=== PATIENT | male | born 1960 | race Caucasian/White ===

== ENCOUNTER → 2019-06-01 13:17 | Outpatient (BNVA) | payer MEDICARE, OTHER, SELFPAY | PROVIDERS: PCP Internal Medicine; Referring Provider Internal Medicine; Visit Provider Physical Therapy Assistant | DX: Z12.11 Encounter for screening for malignant neoplasm of colon (principal); Z86.010 Personal history of colon polyps ==

== ENCOUNTER 2019-06-22 07:39 | Day surgery (SDC) | payer OTHER, MEDICARE, SELFPAY ==
[2019-06-22 07:51] VITALS: BP 127/81; PULSE 59; RESP 17; TEMP 36.1; O2SAT 99
[2019-06-22] MEDS: Lactated Ringers 1,000 ML 80 ML IV (08:21)
--- NOTE | 2019-06-22 09:12 | BOWEL_PTH ---
PATIENT: Wil Alves LOC: [facility] U#:[id number] AGE/SX: 58/M ROOM: RE06/22/[address]: Lacy Quiñonez MD : 1960 BED: DIS: 06/22/2019 SPEC #: [id number] RECD: 06/22/19 13:01 STATUS: ALDAIR RE #: [id number] KIESHA: 06/22/19 09:[address]: Lacy Quiñonez DEPT: Surgical Specimen RECD BY: Martita Luo ENTERED: 06/22/19 13:02 SP TYPE: Bowel OTHR DR: Charlene Goss MD Tissues: 1 - BIOPSY BOWEL 2 - BIOPSY BOWEL Procedures: GROSS AND MICRO LEVEL 4 Comments: [id number]
--- NOTE | 2019-06-22 09:28 | W.PM.DSUDISC ---
Discharge Plan Disposition Patient Disposition: HOME Condition: Good Discharge Details Reason For Visit: Colonoscopy Attending Provider: Lacy Quiñonez Primary Care Provider: Charlene Eli Home Meds and New Rx's Prescriptions: Continued tumeric PO RF: 0 jhqmijmtscvi-rqfsfyhs-mnocgf Tablet 1 tab PO DAILY RF: 0 ibuprofen 200 MG tablet 2 tab PO PRN RF: 0 Discontinued polyethylene glycol 3350 17 gram/dose powder 238 g PO ONCE Qty: 238 RF: 0 bisacodyl [Dulcolax (bisacodyl)] 5 mg tablet,delayed release (DR/EC) 5 mg PO ONCE Qty: 4 RF: 0 Discharge Instructions Additional Instructions: Findings: Two small polyps were removed. My office will contact you with biopsy results. Follow up: Plan for a colonoscopy in 5 years. Please call if you develop: fevers >101.5 Nausea or Vomiting Abdominal pain that is not transient DAY SURGERY UNIT POST COLONOSCOPY INSTRUCTIONS 1. Because there will be medication in your system for the next 24 hours, you may feel a little sleepy. Your coordination will be affected. Therefore: a. Do not drive or operate dangerous equipment for 24 hours. b. Do not drink alcohol beverages for 24 hours (not even beer). c. Plan to go home and rest for the day. 2. Generally there are no restrictions on your activity after a day or so has gone by, but you may feel a bit fatigued for a few days. 3 After you arrive home you may have a light meal and return to a normal diet as you can tolerate it without feeling sick to your stomach. 4. After surgery, you may feel pain or discomfort. This should be only transient, but if it persists please contact your doctor. 5. If there are any questions regarding the findings of your procedure, please feel free to contact your doctor. 6. If you are unable to contact your doctor with a problem, contact the hospital at [phone]. 7. Continue all your regular medications unless directed otherwise. I understand the above instructions and have no questions. Signature of Patient or Responsible Adult Escort Date/Time Name of Responsible Adult Escort Signature of Nurse Date/Time Stand Alone Forms: Eden Aggarwal (REALU) Activity:: Activity as Tolerated Diet:: As Tolerated Discharge Orders Discharge Orders: Discharge Order (Routine); Ordered 06/22/19 Ordered By: Lacy Quiñonez DS: Diagnosis Discharge Diagnosis (1) Polyp of colon: Status: Acute (2) S/P colonoscopy with polypectomy:
[2019-06-22 10:00] VITALS: BP 138/76; PULSE 45; RESP 16; TEMP 35.9; O2SAT 100
--- NOTE | 2019-06-22 11:05 | COLE_ITS ---
REPORT OF OPERATIVE PROCEDURE DATE OF PROCEDURE June 22, 2019 PREOPERATIVE DIAGNOSIS History of colon polyps. POSTOPERATIVE DIAGNOSIS Colon polyps. PROCEDURES Colonoscopy with cold forceps polypectomy. SURGEON Lacy Quiñonez M.D. ANESTHESIA Monitored Anesthesia Care. INDICATIONS This is a 58-year-old man whose last colonoscopy in 2009 showed polyps. He presents for routine follo w up. He is asymptomatic and has no family history of colon cancer. PROCEDURE DESCRIPTION The patient was placed in the left Frazier position. Propofol was titrated to sedation. Digital rectal e xamination revealed no abnormities. The scope was advanced to the cecum without difficulty. The ileo cecal valve and appendiceal orifice were clearly identified. The scope was slowly withdrawn with a po ssible polyp identified at the hepatic flexure. This was removed with the cold forceps, it was less t kwon 1 cm and fairly flat. No other abnormalities were seen throughout transverse, descending or sigmo id colon. In the rectum, a less than 1-cm polyp was removed completely with several bites of the cold forceps. Retroflexed view showed no other abnormalities. He tolerated the procedure well and was sta ble to Recovery. It is anticipated he will need a colonoscopy again in five years pending polyp pathology. CC: Leandro Eli.
== END 2019-06-22 10:15 | disposition home or self-care (01) ==
PROVIDERS: PCP Internal Medicine; Visit Provider Surgery
PROC: 0DJD8ZZ Inspection of Lower Intestinal Tract, Via Natural or Artificial Opening Endoscopic (ICD-10-PCS; CPT 45378; principal; 2019-06-22 09:00)
DX: Z12.11 Encounter for screening for malignant neoplasm of colon (principal); Z86.010 Personal history of colon polyps; D12.3 Benign neoplasm of transverse colon; D12.8 Benign neoplasm of rectum
CPT/HCPCS: 45380; 88305

== ENCOUNTER 2020-04-01 06:27 | Outpatient (CLI) | payer OTHER, MEDICARE, SELFPAY ==
[2020-04-01 08:57] LABS: Abs Immature Grans 0.06 k/cumm (0.0-0.09); Absolute Basophil Count 0.06 k/cumm (0.0-0.2); Absolute Eosinophil Count 0.73 k/cumm (0.0-0.7); Absolute Lymphocyte Count 2.91 k/cumm (1.2-3.4); Absolute Monocyte Count 0.77 k/cumm (0.11-0.7); Absolute Neutrophil Count 8.32 k/cumm (1.2-6.7); Basophils % 0.5; Eosinophils % 5.7; HCT 49.2 % (40.0-50.0); HGB 16.5 g/dL (13.5-17.5); Immature Grans % 0.5 %; Lymphocytes % 22.6; Mean Corp. HGB Concentration 33.5 g/dL (32.0-36.0); Mean Corpuscular Hemoglobin 30.9 pg (27.0-33.0); Mean Corpuscular Volume 92.1 fL (80-95); Mean Platelet Volume 10.1 fL (8.0-11.0); Neutrophils % 64.7; Platelet Count 366 x1000/uL (130-400); RBC 5.34 m/cumm (4.50-6.00); RBC Distribution Width 14.3 % (11.8-14.1); White Blood Cell Count 12.86 k/cumm (4.4-10.8)
[2020-04-01 09:36] LABS: ALT 27 U/L (16-63); AST 17 U/L (15-37); Alkaline Phosphatase 69 U/L (46-116); Anion Gap 6.3 mmol/L (3-11); BUN 17 mg/dL (7-18); Bilirubin, Total 0.6 mg/dL (0.2-1.0); CO2 25.7 mmol/L (21.0-32.0); CREATININE 1.16 mg/dL (0.70-1.30); Calcium 9.3 mg/dL (8.5-10.1); Chloride 107 mmol/L (98-107); Glucose 95 mg/dL (74-106); Potassium 4.3 mmol/L (3.5-5.1); Sodium 139 mmol/L (136-145); TSH (W/Ref FT4) 2.17 uIU/mL (0.36-3.74); Total Protein 7.3 g/dL (6.4-8.2)
[2020-04-01 10:08] LABS: ESR 6 mm/hr (1-20)
== END 2020-04-01 06:47 ==
PROVIDERS: PCP Nurse Practitioner; Visit Provider Internal Medicine
DX: Z00.00 Encounter for general adult medical examination without abnormal findings (principal); F32.9 Major depressive disorder, single episode, unspecified; M25.572 Pain in left ankle and joints of left foot
CPT/HCPCS: 36415; 80053; 85652; 84443; 85025

== ENCOUNTER 2020-08-22 07:48 | Outpatient (CLI) | payer OTHER, SELFPAY ==
[2020-08-23 12:44] LABS: COVID-19 RT-PCR Result NEGATIVE (Negative)
== END 2020-08-22 08:08 ==
PROVIDERS: PCP Nurse Practitioner; Visit Provider Surgery
DX: Z01.818 Encounter for other preprocedural examination (principal)
CPT/HCPCS: U0003

== ENCOUNTER 2020-08-26 08:44 | Day surgery (SDC) | payer OTHER, SELFPAY ==
[2020-08-26] VITALS (8 sets, daily range): BP systolic 93–175; BP diastolic 62–86; PULSE 48–60; RESP 16–25; TEMP 36–36.6; O2SAT 93–99
--- NOTE | 2020-08-26 09:41 | W.PM.DSUDISC ---
Discharge Plan Disposition Patient Disposition: HOME Condition: Good Discharge Details Reason For Visit: Left inguinal hernia repair with mesh Attending Provider: Lacy Quiñonez Primary Care Provider: Juliana La Home Meds and New Rx's Prescriptions: New hydrocodone-acetaminophen 5-325 mg Tablet 1 - 2 tab PO Q4H PRN (Reason: Pain) Qty: 15 RF: 0 Continued tumeric 1 cap PO DAILY RF: 0 jgkrkzehgmhk-nlkhohgq-xeygfd Tablet 1 tab PO DAILY RF: 0 ibuprofen 200 MG tablet 2 tab PO PRN RF: 0 Discharge Instructions Additional Instructions: The top bandage can be removed tomorrow. The steri strips will usually stick for about a week. When the edges start to curl up, they can be removed. It is okay to shower tomorrow, the water can run over the steri strips Do not swim or soak in a tub for two weeks Call for any concerns including fever, increased pain, vomiting, incision redness or drainage. Do not lift more than 15 pounds for four weeks. Walking and stairs are fine. Do not drive if on narcotic pain meds or if limited by pain. May use Tylenol alternating with ibuprofen for pain control. Ice is also an option. The maximum dose for Tylenol is 4000 mg/day. May use ibuprofen 800 mg every 8 hours as needed. If concerned about constipation, you may use a stool softener or milk of magnesia. Referrals: Lacy Quiñonez MD [ [facility] STAFF PHYSICIAN] - (Return in 10-14 days for a postop check) Activity:: Do not lift more than 15 pounds Remove Dressings/Wound Care:: 24 hours Shower/Bathe:: 24 hours Diet:: As Tolerated Discharge Orders Discharge Orders: Discharge Order (Routine); Ordered 08/26/20 Ordered By: Lacy Quiñonez DS: Diagnosis Discharge Diagnosis (1) Inguinal hernia, left: Status: Acute
--- NOTE | 2020-08-26 09:55 | W.PM.OP ---
Date of service: 08/26/20 Time of Service: 11:41 Operative Note Operative Note DATE OF PROCEDURE: 08/26/20 PRE-OP DIAGNOSIS: Left inguinal hernia PROCEDURE: Left inguinal hernia repair with mesh SURGEON: Lacy Quiñonez GUMMED TAPE PRESS OPERATOR: Maya Mosqueda ANESTHESIA: GETA, regional and local Indications: This 59 year old man presents with a bothersome left inguinal hernia. Procedure Description: The patient was placed supine on the operating table. After induction of general anesthesia and TAP block placement, his left groin was prepped and draped sterilely. The ASIS and pubic tubercle were identified and a transverse incision marked between the 2 locations. Local anesthetic was infiltrated and the Ioban placed. Incision was made with knife and subcutaneous tissue divided with cautery down to the external oblique fascia. Any bridging veins that were encountered were clamped, divided and ligated with 3-0 Vicryl ties. A small incision was made in the fascia and extended bluntly through the external inguinal ring. The spermatic cord was dissected free at the level of the pubic tubercle and encircled with a Era drain. There was not a direct defect in the floor of the inguinal canal. Dissection within the cord revealed a small cord lipoma. This was dissected free up to the internal ring and reduced. There is also a moderate sized hernia sac that did not have any contents. This was dissected free of the cord structures and reduced. A medium mesh plug was sutured into the internal ring with interrupted 2-0 Prolene sutures. A flat sheet of mesh was sutured to the floor of the inguinal canal in standard Yamel fashion. The cord was inspected and was not compressed by the mesh. There was good hemostasis. The external oblique fascia was closed with a running 3-0 Vicryl stitch and Ray's fascia closed with interrupted 3-0 Vicryl sutures. The skin was then closed with a running 4 Monocryl subcuticular stitch. He tolerated the procedure well and was stable to recovery.
[2020-08-26] MEDS: ceFAZolin 2 GM/50 ML BAG IVPB (09:58)
[2020-08-26] MEDS: Lactated Ringers 1,000 ML 80 ML IV (11:24)
[2020-08-26] MEDS: fentaNYL 100 MCG/2 ML VIAL IVP ×2 (11:57→12:13)
[2020-08-26] MEDS: Acetaminophen 325 MG TAB 650 MG PO (13:31)
== END 2020-08-26 14:27 | disposition home or self-care (01) ==
PROVIDERS: PCP Nurse Practitioner; Visit Provider Surgery
PROC: (CPT 49505; principal; 2020-08-26 11:00)
DX: K40.90 Unilateral inguinal hernia, without obstruction or gangrene, not specified as recurrent (principal); F41.9 Anxiety disorder, unspecified; F17.210 Nicotine dependence, cigarettes, uncomplicated
CPT/HCPCS: 49505; C1781; J0690; J1100; J1885; J2405; J3010

== ENCOUNTER → 2021-03-18 08:45 | Outpatient (BNVA) | payer OTHER, SELFPAY | PROVIDERS: PCP Nurse Practitioner; Referring Provider Nurse Practitioner; Visit Provider Psychiatry & Neurology Neurology | DX: G58.9 Mononeuropathy, unspecified (principal); G56.23 Lesion of ulnar nerve, bilateral upper limbs; G56.03 Carpal tunnel syndrome, bilateral upper limbs; G57.13 Meralgia paresthetica, bilateral lower limbs; F41.8 Other specified anxiety disorders | CPT/HCPCS: 99215 ==

== ENCOUNTER 2023-04-06 07:54 | Outpatient (CLI) | payer MEDICARE, OTHER, SELFPAY ==
[2023-04-06 07:48] LABS: MCH 30.8 pg (27.0-33.0); MCHC 33.3 % (32.0-36.0); MCV 93 fL (80-95); MPV 9.6 fL (8.0-11.0); Platelet Count 310 10^3/uL (130-400); RBC 5.19 10^6/uL (4.36-5.78); RDW 13.7 % (11.8-14.1); RDW-SD 46.5 fL; WBC 12.03 10^3/uL (4.4-10.8)
[2023-04-06 08:41] LABS: ALT 31 U/L (16-63); AST 19 U/L (15-37); Albumin 3.7 g/dL (3.4-5.0); Alkaline Phosphatase 81 U/L (46-116); Anion Gap 11.5 mmol/L (3-11); BUN 16 mg/dL (7-18); Bilirubin, Total 0.6 mg/dL (0.2-1.0); CO2 22.5 mmol/L (21.0-32.0); Calcium 8.7 mg/dL (8.5-10.1); Calculated LDL 109 mg/dL (<100); Chloride 105 mmol/L (98-107); Cholesterol 180 mg/dL (<200); Estimated GFR 84.57 (mL/min/1.73m2); Glucose 96 mg/dL (74-106); HDL Cholesterol 61 mg/dL (40-60); Potassium 4.4 mmol/L (3.5-5.1); Sodium 139 mmol/L (136-145); Total Protein 7.5 g/dL (6.4-8.2); Triglyceride 50 mg/dL (<150)
== END 2023-04-06 07:55 | disposition home or self-care (01) ==
LOC: LBO 07:55
PROVIDERS: PCP Nurse Practitioner Family; Visit Provider Nurse Practitioner Family
DX: E78.00 Pure hypercholesterolemia, unspecified (principal); G56.23 Lesion of ulnar nerve, bilateral upper limbs; F32.89 Other specified depressive episodes; F41.8 Other specified anxiety disorders; F17.210 Nicotine dependence, cigarettes, uncomplicated
CPT/HCPCS: 36415; 80053; 80061; 85027

== ENCOUNTER 2023-05-10 02:16 | Outpatient (CLI) | payer OTHER, MEDICARE, SELFPAY ==
--- NOTE | 2023-05-10 07:15 | DI.CTLCSR_ITS ---
Exam(s) CT CHEST LUNG CANCER SCREEN EXAM: CT CHEST LUNG CANCER SCREEN CLINICAL HISTORY: Screening for lung cancer,CURRENT SMOKER, F17.210. TECHNIQUE: Imaging Protocol: Low Dose Technique CONTRAST MATERIAL: None COMPARISON: No exams were available for comparison FINDINGS: CHEST: LUNGS: There are no ominous pulmonary nodules. There are no confluent infiltrates. No pleural effusi ons. MEDIASTINUM: There is no obvious hilar nor mediastinal adenopathy. CARDIAC: Heart size is normal. There is no pericardial effusion.The diameter of the ascending thorac ic aorta is enlarged, measuring 3.9 cm.. The diameter of the mid aortic arch is 3 cm. The diameter of the proximal descending thoracic aorta is 3 cm. Diameter of the mid descending thoracic aorta is 2.7 cm. Diameter of the distal thoracic aorta is 2.9 cm. OTHER: OSSEOUS: No significant osseous lesions.No fractures. There is multilevel partial fusion of vertebra l bodies incidentally noted.. IMPRESSION: 1. No ominous pulmonary nodules. No pleural effusions. No obvious intrathoracic adenopathy. 2. Diameter of the thoracic aorta is enlarged, with measurements as above. Diameter of the ascending thoracic aorta is 3.9 cm. 3. Lung RADS Cat 1S - Negative: No nodules and definitely benign nodules Thoracic aortic findings as above Lung-RADS 1.0 CATEGORIES: Category 0 - Prior chest CT exam(s) being located for comparison. Category 1 - Annual screening in 12 months. No nodules or definitely benign nodules. Category 2 - Annual screening in 12 months. Benign appearance. Nodules with low likelihood of becomin g active cancer. Category 3 - 6-month follow-up. Probably benign. Short-term follow-up suggested. Nodules with low lik elihood of becoming active cancer. Category 4A - 3-month follow-up and CT/PET if >8 mm in size. Suspicious finding. Findings which requi re additional testing. Category 4B - Findings which require additional testing and tissue sampling. Category 4X - Category 3 or 4 nodules with additional features or imaging findings that increases the suspicion of malignancy. Modifier S- Potentially clinically significant findings (non lung cancer) RADIATION DOSE DELIVERED: 88.01mGy.cm Total DLP DATA REPOSITORY: All CT scans at this facility are submitted to the National Radiology Data Registry (NRDR) Dose Index Registry (DIR) with the [employer] (ACR). RADIATION OPTIMIZATION: All CT scans at this facility use at least one of these dose optimization te chniques: automated exposure control; mA and/or kV adjustment per patient size (includes targeted exa ms where dose is matched to clinical indication); or iterative reconstruction.
--- NOTE | 2023-05-10 07:15 | DI.US_ITS ---
Exam(s) US ABDOMEN EXAM: US ABDOMEN CLINICAL HISTORY: left abd pain, hernia repair 2-3 yrs ago,R10.9 TECHNIQUE: Ultrasound of complete upper abdomen performed using standard protocol. COMPARISON: US US OR ANESTHESIA from 08/26/2020 FINDINGS: There is no ascites evident. LIVER: There are no hepatic lesions evident nor obvious dilatation of intrahepatic ducts. GALLBLADDER/BILIARY: There are no gallstones. No gallbladder wall edema nor pericholecystic fluid. The common hepatic duct isnot dilated, measuring 5mm at the level of mayela hepatis. PANCREAS: Partially obscured by bowel gas SPLEEN: The spleen is not enlarged and there are no intrasplenic lesions evident. KIDNEYS:Kidneys exhibit normal size with no evidence of solid mass, calculus, nor hydronephrosis. No cortical cysts evident. ABDOMINAL AORTA: There is no evidence of abdominal aortic aneurysm. IVC: Normal diameter where visualized. IMPRESSION: 1. No evidence of cholelithiasis nor dilatation of the biliary tree. 2. Pancreas is partially obscured by overlying bowel gas. 3. No other significant ultrasound findings in the upper abdomen and there is no ascites. DATA REPOSITORY:
== END 2023-05-10 02:36 ==
PROVIDERS: PCP Nurse Practitioner Family; Visit Provider Nurse Practitioner Family
DX: Z12.2 Encounter for screening for malignant neoplasm of respiratory organs (principal); F17.210 Nicotine dependence, cigarettes, uncomplicated; I77.810 Thoracic aortic ectasia; R10.32 Left lower quadrant pain
CPT/HCPCS: 71271; 76700

== ENCOUNTER → 2023-06-24 00:37 | Outpatient (CLI) | payer OTHER, SELFPAY ==
[2023-06-24] MEDS: Barium Sulfate 2% W/V-Berry Smoothie 450 ML BTL PO ×2 (07:29→07:30)
[2023-06-24 07:38] LABS: Estimated GFR 84.57 (mL/min/1.73m2)
[2023-06-24] MEDS: Normal Saline - Diluent 50 ML VIAL IJ (09:09)
[2023-06-24] MEDS: Omnipaque 350 MG/ML 100 ML BTL IJ (09:09)
--- NOTE | 2023-06-24 09:30 | DI.CT_ITS ---
Exam(s) CT ABDOMEN PELVIS W EXAM: CT ABDOMEN PELVIS W CLINICAL HISTORY: LLQ ABD PAIN, R10.32 TECHNIQUE: Imaging Protocol: Axial computed tomography images with coronal and sagittal reformatted images were created and reviewed CONTRAST MATERIAL: Intravenous: Omnipaque 350 Contrast volume:100 mL Oral: Yes COMPARISON: US US ABDOMEN from 05/10/[address] CHEST LUNG CANCER SCREEN from 05/10/2023 FINDINGS: ABDOMEN: Lung Bases: There is a small hiatal hernia. Liver: Normal density. No measurable mass. Portal, Superior Mesenteric, and Splenic Veins: Unremarkable. Gallbladder and Biliary Tract: No radiodense calculus or dilation. Pancreas: Normal density, no abnormal calcifications or inflammatory process. Spleen: Normal. Adrenals: No masses seen. Kidneys: Normal size, contour and axis. No radiodense stones or obstructive uropathy. There is a 6 mm round hypodensity in the midpole of the right kidney. It is too small for further characterization. Abdominal Aorta: Abdominal portion non-dilated. Atherosclerosis is present. Bowel: No obstruction or bowel wall thickening. There is no evidence of appendicitis. Peritoneal Cavity: No ascites, collection or mesenteric inflammatory response. No free air. Lymph Nodes: Within normal limits. Bones: Within normal limits for the patient's age. There is L5 spondylolysis and grade 1-2 spondylol isthesis of L5 on S1. The findings do result in moderately severe bilateral neural foraminal stenosi s at L5-S1. Soft Tissues: Unremarkable. No evidence of an inguinal hernia. PELVIS: Bladder: Symmetric distention, no gross wall thickening. Reproductive Organs: Unremarkable as visualized. Lymph Nodes: Within normal limits. Bones: Within normal limits for the patient's age. IMPRESSION: 1. No acute abdominal or pelvic process. 2. No evidence of nephrolithiasis or hydronephrosis. No evidence of diverticulitis or bowel obstruct ion. RADIATION DOSE DELIVERED: 1,000.41mGy.cm Total DLP DATA REPOSITORY: All CT scans at this facility are submitted to the National Radiology Data Registry (NRDR) Dose Index Registry (DIR) with the [employer] (ACR). RADIATION OPTIMIZATION: All CT scans at this facility use at least one of these dose optimization te chniques: automated exposure control; mA and/or kV adjustment per patient size (includes targeted exa ms where dose is matched to clinical indication); or iterative reconstruction.
== END ==
PROVIDERS: PCP Nurse Practitioner Family; Visit Provider Nurse Practitioner Family
DX: R10.32 Left lower quadrant pain (principal)
CPT/HCPCS: 74177; 82565; J3490

== ENCOUNTER → 2023-12-16 01:18 | Outpatient (CLI) | payer OTHER, MEDICARE, SELFPAY ==
--- NOTE | 2023-12-16 07:15 | DI.CT_ITS ---
Exam(s) CT CHEST WO EXAM: CT CHEST WO CLINICAL HISTORY: incidental finding on lung CT,enlarged thoracic aorta,I77.89. TECHNIQUE: Imaging protocol: Axial computed tomography images were obtained and coronal and sagittal reformatted images were created and reviewed. COMPARISON: CT CT CHEST LUNG CANCER SCREEN from 05/10/2023 FINDINGS: Tracheobronchial tree: Patent where visualized. Pulmonary parenchyma: No consolidation or dominant measurable mass. No architectural distortion. Mediastinum and Joyce: No dominant adenopathy or fluid collection. The esophagus is unremarkable. Thyroid gland: Unremarkable. Pleura: No effusion or pneumothorax. Heart: The heart is not dilated. No coronary artery calcifications are seen. No pericardial effusion. Aorta: Ascending thoracic aortic is ectatic measuring 3.9 cm maximally. No aneurysmal dilatation is seen at this time. This is stable. Mild atherosclerosis. Upper abdomen: Unremarkable. Lymph nodes: Within normal limits. Soft tissues: There is a lipoma overlying the anterior chest wall measuring 7.3 x 1.6 cm (series 5, i mage 523). Bones:Within normal limits for the patient's age. IMPRESSION: 1. No acute pulmonary process. 2. Stable ectasia of the ascending thoracic aorta measuring 3.9 cm maximally. RADIATION DOSE DELIVERED: 559.19mGy.cm Total DLP 559.19mGy.cm Total DLP DATA REPOSITORY: All CT scans at this facility are submitted to the National Radiology Data Registry (NRDR) Dose Index Registry (DIR) with the [employer] (ACR). RADIATION OPTIMIZATION: All CT scans at this facility use at least one of these dose optimization te chniques: automated exposure control; mA and/or kV adjustment per patient size (includes targeted exa ms where dose is matched to clinical indication); or iterative reconstruction.
== END ==
PROVIDERS: PCP Nurse Practitioner Family; Visit Provider Nurse Practitioner Family
DX: I77.89 Other specified disorders of arteries and arterioles (principal)
CPT/HCPCS: 71250; 93227; 93225

== ENCOUNTER 2023-12-16 09:14 | Outpatient (RCR) | payer OTHER, MEDICARE, SELFPAY ==
--- NOTE | 2023-12-16 09:45 | HOLTER_ITS ---
APPROVED REPORT Conclusion This is a 48-hour Holter monitor Rhythm throughout was sinus Average heart rate 67. Minimum was 50, maximum 109 There were very rare isolated atrial and ventricular ectopic beats There was no atrial fibrillation, no SVT, no high-grade AV block, no pauses greater than 3 seconds Symptoms were reported which could not be reliably correlated with any dysrhythmia
== END 2023-12-29 23:59 | disposition home or self-care (01) ==
LOC: CARDOPNVT 09:14
PROVIDERS: PCP Nurse Practitioner Family; Visit Provider Internal Medicine Cardiovascular Disease
DX: I49.9 Cardiac arrhythmia, unspecified (principal)
CPT/HCPCS: 93227; 93225; 93226

== ENCOUNTER → 2024-04-24 01:59 | Outpatient (CLI) | payer OTHER, SELFPAY ==
--- NOTE | 2024-04-24 06:45 | DI.RAD_ITS ---
Exam(s) XR KNEE RT 3V AP,LAT,TRE XR KNEE LT 3V AP,LAT,TRE EXAM: XR KNEE LT 3V AP,LAT,TRE CLINICAL HISTORY: bilateral knee pain getting worse,M25.561,M25.562. TECHNIQUE: 2D digital imaging was performed. Three views of both knee. COMPARISON: CR XR KNEE RT 3V AP,LAT,TRE from 04/24/2024 FINDINGS: BONES: No acute fracture is present. No bony destructive lesion is seen. Enthesophytes at the tibi al tubercle bilaterally. Small enthesophytes left upper pole of the patella. JOINTS: The knee is normally aligned. No joint effusion is seen. The joint spaces are maintained. Minimal periarticular spurring. SOFT TISSUE: Normal. IMPRESSION: Mild degenerative changes. DATA REPOSITORY: RADIATION DOSE DELIVERED:
== END ==
PROVIDERS: PCP Nurse Practitioner Family; Visit Provider Nurse Practitioner Family
DX: M25.561 Pain in right knee (principal); M25.562 Pain in left knee
CPT/HCPCS: 73562

== ENCOUNTER 2024-06-27 01:52 | Outpatient (CLI) | payer MEDICARE, OTHER, SELFPAY ==
--- NOTE | 2024-06-27 15:20 | DI.MRI_ITS ---
Exam(s) MR LOWER JOINT LT WO EXAM: MR LOWER JOINT LT WO CLINICAL HISTORY: Left knee pain after hyperextension,m25.562. TECHNIQUE: Multiplanar multisequence MRI was performed. COMPARISON: CR XR KNEE RT 3V AP,LAT,TRE from 04/24/2024 FINDINGS: BONES: There is no fracture or contusion pattern. JOINTS: A moderate joint effusion is present. Articular cartilage: Patellofemoral joint: Articular cartilage is unremarkable. Medial femoral tibial joint: Mild cartilage thinning and irregularity. Lateral femoral tibial joint: Small focal defect lateral femoral condyle cartilage. LIGAMENTS: Anterior Cruciate: Unremarkable. Posterior Cruciate: Unremarkable. Medial Collateral:Unremarkable. Lateral Collateral ligament complex: Unremarkable. TENDONS: Extensor mechanism: Unremarkable. Medial retinaculum: Unremarkable. Lateral retinaculum: Unremarkable. Popliteus: Unremarkable. MENISCI: The medial meniscus linear horizontal tear extending to the superior articular surface involving the body. The lateral meniscus shows abnormal stellate signal in the body and horizontal tears in the posterior and anterior horns. MUSCLES: Unremarkable. SOFT TISSUES: Small popliteal cyst. IMPRESSION: Tears of the anterior horn, body and posterior horn of the lateral meniscus. Focal tear in the body of the medial meniscus. Small Vázquez's cyst. DATA REPOSITORY:
== END 2024-06-27 02:12 ==
LOC: DI 01:53
PROVIDERS: PCP Nurse Practitioner Family; Visit Provider Nurse Practitioner Family
DX: M23.242 Derangement of anterior horn of lateral meniscus due to old tear or injury, left knee (principal)
CPT/HCPCS: 73721

== ENCOUNTER → 2024-09-11 14:24 | Outpatient (BNVA) | payer MEDICARE, OTHER, SELFPAY | PROVIDERS: PCP Nurse Practitioner Family; Referring Provider Nurse Practitioner Family; Visit Provider Surgery | DX: Z12.11 Encounter for screening for malignant neoplasm of colon (principal) ==

== ENCOUNTER 2024-09-21 09:03 | Day surgery (SDC) | payer OTHER, SELFPAY ==
[2024-09-21 09:47] VITALS: BP 135/77; PULSE 60; RESP 18; TEMP 36.5; O2SAT 98
--- NOTE | 2024-09-21 10:01 | W.ANESPRE ---
General Info Date of Service Date Performed: 09/21/24 Height: 6 ft 2 in Weight: 90.7 kg Body Mass Index (BMI): 25.7 Surgical Procedure: Operation Date: 09/21/24 10:50 Proposed Procedure Side Surgeon p Colonoscopy Willie MCLAIN MD [facility] Allergies and Home Medications Allergies Allergy/AdvReac Type Severity Reaction Status Date / Time No Known Allergies Allergy Verified 09/21/24 09:45 Home Medication ?Medication ?Instructions ?Recorded ibuprofen 200 mg tablet 2 tab PO PRN 08/22/17 hjlwwltyqbxs-osmnqmly-vpujsk tablet 1 tab PO DAILY 06/01/19 Turmeric 1 cap PO DAILY 04/10/21 ciclopirox 8 % topical solution 1 applic topical QHS #6.6 mL 02/22/23 gabapentin 100 mg capsule 100 mg PO TID #270 caps 03/05/24 bisacodyl 5 mg tablet,delayed 5 mg PO ONCE colonscopy bowel prep 09/11/24 release (Dulcolax (bisacodyl)) #4 tabs polyethylene glycol 3350 17 238 g PO ONCE colonoscopy prep 09/11/24 gram/dose oral powder #238 grams Current Visit Medications: Current Medications Generic Name Dose Route Start Last Admin Trade Name Freq PRN Reason Stop Dose Admin IV Miscellaneous Supplies 1 each 09/21/24 06:00 Iv Access IV 09/21/24 23:59 DIRECTED KEVAN Sodium Chloride 0 ml 09/21/24 06:00 Normal Saline Flush 10 Ml Syr IV 09/21/24 23:59 PRN PRN Sodium Chloride 0 ml 09/21/24 06:00 Normal Saline 10 Ml Vial IJ 09/21/24 23:59 DIRECTED PRN Sterile Water 0 ml 09/21/24 06:00 Water,Injection,Sterile 10 Ml Vial IJ 09/21/24 23:59 DIRECTED PRN PFSH Active Problems Active Problems: Problem Status Onset Code Bilateral knee pain Acute M25.561, M25.562 Enlarged thoracic aorta Acute I77.89 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 states he was told this as a child. No current issue, and is not being followed by MD Nguyen of colon (04/16/10) 06/22/19 Dr Lacy Quiñonez, tubular and tubulovillous adenomas, repeat colo five years sessile/serrated adenoma at 25 cm Needs new colonoscopy....sent to Dr. Negron. Onychomycosis Axonal neuropathy (06/18/14) Arthralgia of left ankle or foot Left; basketball injury; H/O ankle fx Surgical History Surgical History S/P colonoscopy with polypectomy 06/22/19 History of third molar tooth extraction Repair of inguinal hernia LEFT Tooth extraction WISDOM TEETH EXTRACTION X 4 Tobacco Smoking/Tobacco Use Status: Former Tobacco Use Passive smoking exposure: Yes Second hand exposure: Yes Alcohol Alcohol Intake: current Alcohol intake frequency: holidays/special occasions only Alcohol type: beer, wine and hard liquor Substance Use Substance use: Daily Substance use type: marijuana Details: last used 09/20/24 at noon Vital Signs and Lab Results Vital Signs Most Recent Vital Signs in EMR: Most Recent Vital Signs Temp Pulse Resp BP Pulse Ox 36.5 C 60 18 135/77 98 09/21/24 09:47 09/21/24 09:47 09/21/24 09:47 09/21/24 09:47 09/21/24 09:47 Lab Results Blood Type / Crossmatch: No Data to Display Complete Blood Count: No Data to Display Complete Metabolic Panel: No Data to Display Liver Function Panel: No Data to Display Coagulation Panel: No Data to Display Cardiac Panel: No Data to Display Arterial Blood Gas: No Data to Display Venous Blood Gas: No Data to Display Pancreas Panel: No Data to Display Thyroid Panel: No Data to Display Infectious Disease: No Data to Display Blood Cultures: No Data to Display Toxicology Panel: No Data to Display Anesthesia Assessment and Plan Anesthesia History Personal History: No History of Anesthesia Complications Family History: No Family History of Anesthesia Complications Exercise Tolerance Exercise Tolerance: Metabolic Equivalents>4 Pertinent Negatives Pertinent Negatives: No Symptoms of GERD, No Major Pulmonary Symptoms or Complaints and No History of CVA/TIA Cardiac & Pulmonary Exam Cardiac Exam: Normal S1/S2 Heart Sounds Pulmonary Exam: Clear Bilateral Breath Sounds Implantable Cardiac Device Does patient have a Pacemaker or an ICD?: No Airway Exam Known Difficult Airway: No Mallampati Class: 2 Mouth Opening: Normal (> 3cm) Thyromental Distance: Greater than 3 cm Neck Range of Motion: Full ROM Neck Circumference: Normal Teeth Condition: Normal Dentition ASA Classification ASA Score: ASA 2 Emergency Case?: No NPO Status NPO Status: NPO Clears >2 hours, Solids >8 hours Anesthesia Plan Resuscitation Status: Full Code Anesthesia Technique: General Anesthesia Airway Planned: Natural Airway Monitors Used: Standard Monitors
[2024-09-21] MEDS: Normal Saline Flush 10 ML SYR IV (10:06)
[2024-09-21 10:51] VITALS: BMI 25.7
[2024-09-21 11:43] VITALS: BP 124/62; PULSE 56; RESP 18; TEMP 36.4; O2SAT 99
--- NOTE | 2024-09-21 11:52 | W.PM.OP ---
Operative Note Operative Note PRE-OP DIAGNOSIS: Colon cancer screening, history of adenomatous polyps PROCEDURE: Colonoscopy SURGEON: Willie Mensah [facility] ANESTHESIA TYPE: MAC Refer to Anesthesia Record PATHOLOGY: other (Sigmoid colon polyp x 2) COMPLICATIONS: None Patient was transported to: PACU Patient's condition: stable Findings: 2 subcentimeter polyps Procedure Description: After obtaining form consent, patient was brought back to the operating room. He was turned on his left side and connected to the monitors. Timeout was performed. Propofol was administered by the nurse or first assist registered nurse. I began by performing a digital rectal exam. This was unremarkable. I inserted the colonoscope and advanced the length of the colon. I attained the cecum as identified by the appendiceal orifice and the ileocecal valve. I did intubate the ileocecal valve. The terminal ileum had a normal appearance. I withdrew into the cecum. Prep was good. Cecum had a normal appearance. I withdrew along the ascending colon, transverse colon, and descending colon. No mucosal abnormalities were noted. I withdrew into the sigmoid. Here I came across a 3 mm sessile polyp that I removed with a cold biopsy forcep and a 2 mm sessile polyp that I also removed with a cold biopsy forcep. These were both sent to pathology. No diverticula were noted. I withdrew into the rectum. I did retroflex. This was also unremarkable. I decompressed the rectum and the sigmoid and withdrew the scope entirely. Patient tolerated well. He went to recovery in stable condition. Disposition: Patient will be discharged home later today. We will call him with the pathology report. He will likely need a repeat colonoscopy in 5 years, pending pathology, given personal history of polyps. Date of Procedure: 09/21/24
--- NOTE | 2024-09-21 12:10 | W.ANESPOSTOP ---
Postoperative Evaluation Date, Time and Location Date Performed: 09/21/24 Time Performed: 11:45 Patient Location: Day Surgery Unit Vital Signs Most Recent Imported Vital Signs: Most Recent Vital Signs Temp Pulse Resp BP Pulse Ox 36.4 C L 56 L 18 124/62 99 09/21/24 11:43 09/21/24 11:43 09/21/24 11:43 09/21/24 11:43 09/21/24 11:43 Pain Score Most Recent Pain Score: Most Recent Pain Score Pain Level 0 09/21/24 11:43 Assessment Mental Status: Awake (Alert & Oriented to Patient Baseline) Airway and Respiratory Function: Patent airway with normal (patient baseline) respiratory exam Cardiovascular Function: Hemodynamically Stable Hydration Status: Adequately Hydrated Nausea & Vomiting: No Nausea or Vomiting Pain: Pt. Denies Any Pain Peripheral Nerve Block: Patient did not receive a nerve block
[2024-09-21 12:13] VITALS: BP 127/80; PULSE 54; RESP 18; TEMP 36.8; O2SAT 99
== END 2024-09-21 12:25 | disposition home or self-care (01) ==
PROVIDERS: PCP Nurse Practitioner Family; Visit Provider Surgery
PROC: 0DJD8ZZ Inspection of Lower Intestinal Tract, Via Natural or Artificial Opening Endoscopic (ICD-10-PCS; CPT 45378; principal; 2024-09-21 10:45)
DX: Z12.11 Encounter for screening for malignant neoplasm of colon (principal); D12.5 Benign neoplasm of sigmoid colon
CPT/HCPCS: 45380; 00123; 88305; J2704

== ENCOUNTER → 2025-01-03 08:09 | Outpatient (BNVA) | payer MEDICARE, OTHER, SELFPAY | PROVIDERS: PCP Nurse Practitioner Family; Referring Provider Nurse Practitioner Family | DX: G56.23 Lesion of ulnar nerve, bilateral upper limbs (principal); M77.01 Medial epicondylitis, right elbow; M77.02 Medial epicondylitis, left elbow | CPT/HCPCS: 99215 ==

== ENCOUNTER 2025-05-24 00:08 | Outpatient (CLI) | payer MEDICARE, OTHER, SELFPAY ==
--- NOTE | 2025-05-24 06:45 | DI.CTLCSR_ITS ---
Exam(s) CT CHEST LUNG CANCER SCREEN EXAM: CT CHEST LUNG CANCER SCREEN CLINICAL HISTORY: Screening for lung cancer,current smoker, f17.210 TECHNIQUE: Imaging Protocol: Axial computed tomography images with coronal and sagittal reformatted images were created and reviewed. Low dose screening protocol. COMPARISON: CT CT CHEST WO from 12/16/2023 FINDINGS: Tracheobronchial tree: No bronchiectasis or mucus plugging. Mediastinum and Joyce: No dominant adenopathy or fluid collection. Pulmonary parenchyma: No consolidation or dominant measurable mass. Minimal emphysematous changes. No significant interstitial changes. Lung Nodules: None. Pleura: No effusion. No pneumothorax. Heart: The heart is not dilated. No coronary artery calcifications are seen. No pericardial effusion. Aorta: Ascending aorta measures 3.9 cm minimal atherosclerotic calcifications at the arch. Upper abdomen: Unremarkable. Bones: Unremarkable for age. 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 IMPRESSION: No suspicious pulmonary nodules. Lung RADS Cat 1 - Negative: No nodules and definitely benign nodules Lung-RADS 1.0 CATEGORIES: Category 0 - Prior chest CT exam(s) being located for comparison. Category 1 - Annual screening in 12 months. No nodules or definitely benign nodules. Category 2 - Annual screening in 12 months. Benign appearance. Nodules with low likelihood of becoming active cancer. Category 3 - 6-month follow-up. Probably benign. Short-term follow-up suggested. Nodules with low likelihood of becoming active cancer. Category 4A - 3-month follow-up and CT/PET if >8 mm in size. Suspicious finding. Findings which require additional testing. Category 4B - Findings which require additional testing and tissue sampling. Category 4X - Category 3 or 4 nodules with additional features or imaging findings that increases the suspicion of malignancy. Modifier S- Potentially clinically significant findings (non lung cancer) RADIATION DOSE DELIVERED: 37.25mGy.cm Total DLP DATA REPOSITORY: All CT scans at this facility are submitted to the National Radiology Data Registry (NRDR) Dose Index Registry (DIR) with the [employer] ([employer]). RADIATION OPTIMIZATION: All CT scans at this facility use at least one of these dose optimization techniques: automated exposure control; mA and/or kV adjustment per patient size (includes targeted exams where dose is matched to clinical indication); or iterative reconstruction.
--- NOTE | 2025-05-24 06:45 | DI.US_ITS ---
Exam(s) US AAA SCREENING EXAM: US AAA SCREENING CLINICAL HISTORY: 40 pack years,smoker, f17.200 COMPARISON: CT CT CHEST LUNG CANCER SCREEN from 05/24/2025 FINDINGS: Abdominal Aorta: Proximal: 2.8 cm Mid: 2.3 cm Distal: 2.2 cm Iliacs: Right: 1.3 cm Left: 1.1 cm IMPRESSION: No evidence of abdominal aortic aneurysm. DATA REPOSITORY:
== END 2025-05-24 00:28 ==
LOC: DI 00:08
PROVIDERS: PCP Nurse Practitioner Family; Visit Provider Nurse Practitioner Family
DX: Z12.2 Encounter for screening for malignant neoplasm of respiratory organs (principal); F17.210 Nicotine dependence, cigarettes, uncomplicated
CPT/HCPCS: 71271; 76706

== ENCOUNTER 2025-07-02 09:53 | Outpatient (CLI) | payer MEDICARE, OTHER, SELFPAY ==
[2025-07-02 08:05] LABS: ALT 28 U/L (16-63); AST 19 U/L (15-37); Albumin 3.9 g/dL (3.4-5.0); Alkaline Phosphatase 70 U/L (46-116); Anion Gap 8.4 mmol/L (3-11); BUN 17 mg/dL (7-18); Bilirubin, Total 0.7 mg/dL (0.2-1.0); CO2 25.6 mmol/L (21.0-32.0); Calcium 9.1 mg/dL (8.5-10.1); Calculated LDL 112 mg/dL (<100); Chloride 106 mmol/L (98-107); Cholesterol 190 mg/dL (<200); Estimated GFR 83.52 (mL/min/1.73m2); Glucose 97 mg/dL (74-106); HDL Cholesterol 66 mg/dL (>or=40); Potassium 4.2 mmol/L (3.5-5.1); Sodium 140 mmol/L (136-145); Total Protein 7.5 g/dL (6.4-8.2); Triglyceride 62 mg/dL (<150)
[2025-07-02 20:22] LABS: PSA, Screening 0.9 ng/mL (<=4.5)
== END 2025-07-02 09:54 | disposition home or self-care (01) ==
LOC: LBO 09:54
PROVIDERS: PCP Nurse Practitioner Family; Visit Provider Nurse Practitioner Family
DX: Z00.00 Encounter for general adult medical examination without abnormal findings (principal); E78.5 Hyperlipidemia, unspecified; Z12.5 Encounter for screening for malignant neoplasm of prostate
CPT/HCPCS: 36415; 80053; 80061; 84153